=== PATIENT | female | born 1985 | race Caucasian/White ===

== ENCOUNTER 2017-01-04 13:54 | Emergency (ER) | payer SELFPAY ==
[~2017-01-04] VITALS: Ht 170.2 cm; Wt 59.0 kg
[2017-01-04 15:05] LABS: HEMATOCRIT 46.5 % (36.0-46.0); MCH 30.5 PG (29.0-34.0); MCHC 33.5 G/DL (30.0-36.0); MCV 90.8 FL (83-99); MEAN PLAT.VOLUME 10.8 uM^3 (9.5-12.4); PLATELET COUNT 182 K/uL (156-360); RBC DIS.WIDTH-CV 13.2 % (11.8-14.6); RBC DIS.WIDTH-SD 43.6 % (39-53); RED BLOOD COUNT 5.12 M/uL (3.80-5.20); WHITE BLOOD COUNT 6.1 K/uL (4.1-10.2)
[2017-01-04 15:12] LABS: ADD MIUA? NO; BILIRUBIN NEGATIVE; BLOOD NEGATIVE; COLOR STRAW ((YELLOW)); GLUCOSE (STRIP) NEGATIVE; KETONES NEGATIVE; LEUKOCYTES NEGATIVE; NITRITE NEGATIVE; PROTEIN (STRIP) NEGATIVE; SPECIFIC GRAVITY 1.003 (1.000-1.030); UCUL ADDED? NO; UROBILINOGEN 0.2 MG/DL (0.2-1.0)
[2017-01-04 16:03] LABS: CHLORIDE 102 mEq/L (99-109); POTASSIUM 3.7 mEq/L (3.7-5.4); SODIUM 138 mEq/L (136-147)
[2017-01-04 16:05] LABS: GLUCOSE 73 mg/dL (70-99)
[2017-01-04 16:07] LABS: ANION GAP 8 MEQ/L (2-14); TOTAL BILIRUBIN 0.4 mg/dL (0.0-1.0)
[2017-01-04 16:09] LABS: ALKALINE PHOSPHATASE 49 IU/L (3-129); GFR ESTIMATE (CALCULATED) > 59 mL/min/
[2017-01-04 16:10] LABS: UREA NITROGEN (BUN) 6 mg/dL (9-23)
[2017-01-04 16:12] LABS: LIPASE 7 U/L (1.0-51.0)
[2017-01-04 16:39] LABS: QUANTITATIVE HCG < 4.0 MIU/ML
[2017-01-04 16:58] VITALS: BP 129/84
== END 2017-01-04 16:59 | disposition left against medical advice (07) ==
LOC: EME 13:54
PROVIDERS: Physician Assistant Medical
DX: R10.31 Right lower quadrant pain (principal); R10.33 Periumbilical pain; R30.0 Dysuria; F17.200 Nicotine dependence, unspecified, uncomplicated
CPT/HCPCS: 80053; 81003; 83690; 84702; 85027; 99281; 99285; J1885; J7030